=== PATIENT | female | born 1995 | race Caucasian/White ===

== ENCOUNTER → 2020-05-23 | Outpatient (CLI) | payer BC ==
[~2020-05-23] MED LIST: BIRTH CONTROL PO; PERCOCET 5-3251 EACH PO; SERTRALINE HCL100 MG PO; SPRINTEC1 EACH PO; ZOLOFT 50 MG TA50 M1 PO; ZOLOFT100 MG PO
== END ==
LOC: LAB 13:59
PROVIDERS: ATTEND Neuromusculoskeletal Medicine & OMM
DX: Z03.818 Encounter for observation for suspected exposure to other biological agents ruled out (principal)

== ENCOUNTER → 2020-07-03 | Outpatient (CLI) | payer BC | LOC: LAB 14:11 | PROVIDERS: ATTEND Neuromusculoskeletal Medicine & OMM | DX: Z20.828 Contact with and (suspected) exposure to other viral communicable diseases (principal); R50.9 Fever, unspecified; R05 Cough; R06.02 Shortness of breath; R51 Headache; J02.9 Acute pharyngitis, unspecified ==

== ENCOUNTER → 2020-12-03 | Outpatient (CLI) | payer BC | LOC: LAB 13:59 | PROVIDERS: ATTEND Neuromusculoskeletal Medicine & OMM | DX: U07.1 COVID-19 (principal) ==

== ENCOUNTER 2021-12-05 15:50 | Emergency (ER) | payer BC, OTHER ==
[~2021-12-05] VITALS: Ht 157.5 cm; Wt 68.0 kg
[2021-12-05 16:06] VITALS: BP 116/78
[2021-12-05] MEDS ORDERED: PREDNISONE 10 M10 MG PO ×2 (18:02→18:20)
[2021-12-05] MEDS ORDERED: TESSALON PERLE100 MG PO ×2 (18:02→18:20)
--- NOTE | 2021-12-06 09:38 | EKG ---
[address] [address] ELECTROCARDIOGRAM REPORT Name: JEREMIAH HOPKINS Room [facility]: [facility] [id number] Admission: 12/05/21 Attend Phys: Discharge: 12/05/21 Date of : [birth year] Report #: [id number] [facility] ED Test Date: 2021-12-05 Test Time: 16:04:42 Pat Name: JEREMIAH HOPKINS Department: Room: Gender: F Health Information Clerk: : 1995 Requested By: Misty Busch Order Number: [id number] MD: Azar Taylor Measurements Intervals [place] Rate: 100 P: 51 MT: 130 QRS: 35 QRSD: 82 T: 33 QT: 336 QTc: 434 Interpretive Statements Sinus tachycardia Baseline wander in lead(s) V2 No previous ECG available for comparison Electronically Signed On 12-06-2021 9:38:35 [employer] by Azar Taylor [email or web address] <ELECTRONICALLY SIGNED> By: Azar Taylor MD, [facility] 12/06/21 0938 1604 1604 Azar Taylor MD, FACC /EPI
== END 2021-12-05 18:24 | disposition home or self-care (01) ==
LOC: ER 15:50
DX: R07.89 Other chest pain (principal); R05.9 Cough, unspecified; F32.9 Major depressive disorder, single episode, unspecified; Z90.89 Acquired absence of other organs; Z79.899 Other long term (current) drug therapy